=== PATIENT | female | born 2000 | race Hispanic/Latino ===

== ENCOUNTER 2024-01-04 00:10 | Emergency (ER) | payer BC, MEDICAID ==
[~2024-01-04] VITALS: Ht 149.9 cm; Wt 76.2 kg
[2024-01-04 00:47] LABS: APPEARANCE,URINE CLOUDY (CLEAR); BILIRUBIN,URINE NEGATIVE (NEGATIVE); COLOR,URINE YELLOW (YELLOW); GLUCOSE, URINE (UA) NEGATIVE (NEGATIVE); KETONES,URINE NEGATIVE (NEGATIVE); LEUKOCYTE ESTERASE ,URINE 500 Leu/uL (NEGATIVE); NITRATE,URINE NEGATIVE (NEGATIVE); PH,URINE 5.5 (5.0-8.0); PROTEIN,URINE 20 mg/dL (NEGATIVE); UROBILINOGEN,URINE 0.2 mg/dL (0.2-1.0)
[2024-01-04 00:47] LABS: CREATININE 0.6 mg/dL (0.5-1.0); POTASSIUM 3.5 mmol/L (3.5-5.1)
[2024-01-04 00:48] LABS: ADD UA MICROSCOPIC YES
[2024-01-04 00:50] LABS: HCG,QUALITATIVE URINE NEGATIVE (NEGATIVE)
[2024-01-04 00:51] LABS: BASOPHILS # (AUTO) 0.04 K/uL (0.00-0.20); BASOPHILS % (AUTO) 0.4 % (0.0-5.0); EOSINOPHILS % (AUTO) 1.9 % (0.0-8.0); HEMATOCRIT 32.2 % (36-48); IMMATURE GRANULOCYTE ABSOLUTE 0.03 K/uL (0-1); LYMPHOCYTES # (AUTO) 1.7 K/uL (1.0-4.8); LYMPHOCYTES % (AUTO) 15.4 % (21.0-51.0); MEAN CORPUSCULAR HEMOGLOBIN 25.3 pg (27.0-33.0); MEAN CORPUSCULAR HGB CONC 31.7 g/dL (32.0-36.0); MEAN CORPUSCULAR VOLUME 79.9 fL (79-99); MONOCYTES # (AUTO) 0.5 K/uL (0.1-1.0); MONOCYTES % (AUTO) 4.2 % (3.0-13.0); NEUTROPHILS # (AUTO) 8.3 K/uL (1.8-7.7); NEUTROPHILS % (AUTO) 77.8 % (40.0-77.0); PLATELET COUNT (AUTO) 483 K/uL (130-400); RED BLOOD CELL COUNT(AUTO) 4.03 MIL/uL (4.00-5.50); RED CELL DISTRIBUTION WIDTH 17.5 % (11.0-15.5); WHITE BLOOD COUNT (AUTO) 10.7 K/uL (4.8-10.8)
[2024-01-04 01:01] LABS: BACTERIA,URINE MOD /HPF (None Seen); MUCUS,URINE RARE LPF (None Seen); SQUAMOUS EPITHELIAL CELL,UR MANY /HPF (0-2); WBC,URINE TNTC /HPF (0-1)
[2024-01-04 01:14] LABS: B-TYPE NATRIURETIC PEPTIDE 45 pg/mL (0-100)
[2024-01-04] MEDS: MAG/ALUM/SIMETH 30 ML UDCUP PO ONE (01:16)
[2024-01-04] MEDS: LIDOCAINE HCL 2% VISCOUS 15 ML UDCUP PO ONE (01:17)
[2024-01-04] MEDS ORDERED: OMEP-272 PO (01:41)
[2024-01-04 01:49] VITALS: BP 122/72; PULSE 78; RESP 20; O2SAT 98
[2024-01-04] MEDS ORDERED: SUCR1TAB28 PO (18:09)
== END 2024-01-04 01:59 | disposition home or self-care (01) ==
LOC: EDH 00:10
DX: K21.9 Gastro-esophageal reflux disease without esophagitis (principal); Z88.8 Allergy status to other drugs, medicaments and biological substances; Z79.899 Other long term (current) drug therapy
CPT/HCPCS: 36415; 71045; 80048; 81001; 81025; 82550; 83880; 84484; 85025; 87086; 93005

== ENCOUNTER 2024-01-04 16:40 | Emergency (ER) | payer BC, MEDICAID ==
[~2024-01-04] VITALS: Ht 147.3 cm; Wt 76.2 kg
[2024-01-04 16:40] VITALS: BP 144/94; PULSE 70; RESP 16
[~2024-01-04 16:40] MED LIST: OMEP-272 PO
[2024-01-04 16:57] LABS: BASOPHILS # (AUTO) 0.05 K/uL (0.00-0.20); BASOPHILS % (AUTO) 0.6 % (0.0-5.0); EOSINOPHILS # (AUTO) 0.13 K/uL (0.00-0.70); EOSINOPHILS % (AUTO) 1.4 % (0.0-8.0); HEMATOCRIT 36.5 % (36-48); IMMATURE GRANULOCYTE ABSOLUTE 0.02 K/uL (0-1); LYMPHOCYTES # (AUTO) 1.8 K/uL (1.0-4.8); MEAN CORPUSCULAR HEMOGLOBIN 25.8 pg (27.0-33.0); MEAN CORPUSCULAR HGB CONC 31.5 g/dL (32.0-36.0); MEAN CORPUSCULAR VOLUME 81.8 fL (79-99); MONOCYTES # (AUTO) 0.4 K/uL (0.1-1.0); MONOCYTES % (AUTO) 4.3 % (3.0-13.0); NEUTROPHILS # (AUTO) 6.7 K/uL (1.8-7.7); NEUTROPHILS % (AUTO) 73.5 % (40.0-77.0); PLATELET COUNT (AUTO) 489 K/uL (130-400); RED BLOOD CELL COUNT(AUTO) 4.46 MIL/uL (4.00-5.50); RED CELL DISTRIBUTION WIDTH 17.6 % (11.0-15.5); WHITE BLOOD COUNT (AUTO) 9.1 K/uL (4.8-10.8)
[2024-01-04 17:05] LABS: CREATININE 0.5 mg/dL (0.5-1.0); POTASSIUM 3.7 mmol/L (3.5-5.1)
[2024-01-04 17:09] LABS: ALBUMIN 4.1 g/dL (3.5-5.0); BILIRUBIN,TOTAL 0.6 mg/dL (0.2-1.0); TOTAL PROTEIN, SERUM 8.3 g/dL (6.0-8.3)
[2024-01-04] MEDS: DICYCLOMINE HCL 10 MG/5 ML ML PO ONE (17:24)
[2024-01-04] MEDS: LIDOCAINE HCL 2% VISCOUS 15 ML UDCUP PO ONE (17:24)
[2024-01-04] MEDS: MAG/ALUM/SIMETH 30 ML UDCUP PO ONE (17:24)
[2024-01-04] MEDS: 0.9%NACL 1000ML 1,000 ML IV ONE (17:25)
[2024-01-04] MEDS: FAMOTIDINE 20MG VIAL IV ONE (17:27)
[2024-01-04 17:47] LABS: APPEARANCE,URINE CLOUDY (CLEAR); BILIRUBIN,URINE NEGATIVE (NEGATIVE); COLOR,URINE YELLOW (YELLOW); GLUCOSE, URINE (UA) NEGATIVE (NEGATIVE); KETONES,URINE NEGATIVE (NEGATIVE); LEUKOCYTE ESTERASE ,URINE 500 Leu/uL (NEGATIVE); NITRATE,URINE NEGATIVE (NEGATIVE); OCCULT BLOOD,URINE MODERATE (NEGATIVE); PH,URINE 5.5 (5.0-8.0); PROTEIN,URINE 70 mg/dL (NEGATIVE); UROBILINOGEN,URINE 0.2 mg/dL (0.2-1.0)
[2024-01-04 17:49] LABS: ADD UA MICROSCOPIC YES
[2024-01-04 17:51] LABS: BACTERIA,URINE MOD /HPF (None Seen); MUCUS,URINE MANY LPF (None Seen); RBC,URINE 26-50 /HPF (0-1); SQUAMOUS EPITHELIAL CELL,UR MANY /HPF (0-2); WBC,URINE TNTC /HPF (0-1)
[2024-01-04] MEDS ORDERED: SUCR1TAB28 PO (18:09)
== END 2024-01-04 19:03 | disposition home or self-care (01) ==
LOC: EDH 16:40
DX: K29.70 Gastritis, unspecified, without bleeding (principal); K80.20 Calculus of gallbladder without cholecystitis without obstruction; Z91.013 Allergy to seafood
CPT/HCPCS: 99284; 96374; 76705; 96361; 80053; 83690; 85025; 81001; 81025; 36415; J3490; J7030

== ENCOUNTER 2024-02-04 09:17 | Day surgery (SDC) | payer BC, MEDICAID ==
[2024-02-02 10:43] LABS: BASOPHILS # (AUTO) 0.02 K/uL (0.00-0.20); BASOPHILS % (AUTO) 0.4 % (0.0-5.0); EOSINOPHILS # (AUTO) 0.11 K/uL (0.00-0.70); EOSINOPHILS % (AUTO) 2.3 % (0.0-8.0); HEMATOCRIT 33.8 % (36-48); IMMATURE GRANULOCYTE ABSOLUTE 0.01 K/uL (0-1); LYMPHOCYTES # (AUTO) 1.8 K/uL (1.0-4.8); LYMPHOCYTES % (AUTO) 37.7 % (21.0-51.0); MEAN CORPUSCULAR HEMOGLOBIN 25.9 pg (27.0-33.0); MEAN CORPUSCULAR VOLUME 81.1 fL (79-99); MONOCYTES # (AUTO) 0.3 K/uL (0.1-1.0); MONOCYTES % (AUTO) 5.2 % (3.0-13.0); NEUTROPHILS # (AUTO) 2.6 K/uL (1.8-7.7); NEUTROPHILS % (AUTO) 54.2 % (40.0-77.0); PLATELET COUNT (AUTO) 460 K/uL (130-400); RED BLOOD CELL COUNT(AUTO) 4.17 MIL/uL (4.00-5.50); RED CELL DISTRIBUTION WIDTH 16.9 % (11.0-15.5); WHITE BLOOD COUNT (AUTO) 4.9 K/uL (4.8-10.8)
[2024-02-02 10:51] VITALS: BP 110/66; PULSE 53; RESP 18
[2024-02-02 10:54] LABS: CREATININE 0.5 mg/dL (0.5-1.0)
[~2024-02-04] VITALS: Ht 147.3 cm; Wt 73.3 kg
[2024-02-04] VITALS (15 sets, daily range): BP systolic 110–154; BP diastolic 57–88; PULSE 53–67; RESP 14–21
[~2024-02-04 09:17] MED LIST changes: +SUCR1TAB28 PO
[2024-02-04] MEDS: LACTATED RINGERS 1000ML 1,000 ML IV ONE (10:11)
[2024-02-04] MEDS ORDERED: FAMOTIDINE 20MG VIAL IV ONE (10:12)
[2024-02-04] MEDS ORDERED: ACETAMINOPHEN 1,000 MG/100 ML VIAL IV ONE (10:12)
[2024-02-04] MEDS ORDERED: ROPIVACAINE 0.5% 5MG/ML 30ML ONE (10:20)
[2024-02-04] MEDS ORDERED: ROCURONIUM BROMIDE 10MG/1ML 5ML VL ONE (10:21)
[2024-02-04] MEDS ORDERED: PROPOFOL 10 MG/ML 20ML VIAL IV ONE (10:21)
[2024-02-04] MEDS ORDERED: LIDOCAINE PF 100MG/5ML (2%) SYRINGE 5ML ONE (10:21)
[2024-02-04] MEDS ORDERED: FENTANYL CITRATE PF 50 MCG/1 ML 2ML VIAL ONE (10:22)
[2024-02-04] MEDS ORDERED: MIDAZOLAM HCL 1 MG/ML 2ML VIAL ONE (10:46)
[2024-02-04] MEDS: CEFAZOLIN SODIUM 2 GM VIAL ONE (11:05)
[2024-02-04] MEDS ORDERED: ONDANSETRON 4MG INJ ONE (11:06)
[2024-02-04] MEDS ORDERED: DEXAMETHASONE SOD PHOSPHATE 10MG/ML 1ML VIAL ONE (11:06)
[2024-02-04] MEDS ORDERED: GLYCOPYRROLATE 0.2 MG/ML 5 ML VIAL ONE (11:19)
[2024-02-04] MEDS ORDERED: NEOSTIGMINE METHYLSULFATE 1MG/ML IV ONE (11:19)
== END 2024-02-04 13:45 | disposition home or self-care (01) ==
LOC: DAH 09:17
PROVIDERS: ATTEND Surgery
DX: K80.10 Calculus of gallbladder with chronic cholecystitis without obstruction (principal); R94.5 Abnormal results of liver function studies; R12 Heartburn; E66.01 Morbid (severe) obesity due to excess calories; Z68.34 Body mass index [BMI] 34.0-34.9, adult; Z79.899 Other long term (current) drug therapy
CPT/HCPCS: 80048; 84703; 85025; 86850; 86900; 86901; 36415; 93005; 64488; 47563; 88304; 74300; A6260; A4600; A4663; J7030; A4215 ×2; C1758; J7120; J3490 ×3; J3010; J1100; J2001; J2250; J2704; J2405; J2710; J2795; J0690; C1769 ×3; G0168; A4649 ×2; A4930; A4223; A4213; A4222; A4221